=== PATIENT | male | born 1930 | race Hispanic/Latino ===

== ENCOUNTER 2016-11-12 13:28 | Outpatient (CLI) | payer MEDICARE, OTHER ==
[2016-11-12 13:42] LABS: Hematocrit 36.3 % (35.5-45.6); Hemoglobin 12.1 gm/dl (11.8-15.2); Mean Corpuscular HGB Conc 33 % (32-34); Mean Corpuscular Hemoglobin 29 pg (28-32); Mean Corpuscular Volume 88 fl (84-94); Platelet Count 246 K/mm3 (140-440); Red Blood Count 4.14 M/mm3 (3.65-5.03); Red Cell Distribution Width 14.3 % (13.2-15.2)
[2016-11-12 14:18] LABS: Alanine Aminotransferase 13 units/L (7-56); Albumin 4.3 g/dL (3.9-5); Albumin/Globulin Ratio 1.5 %; Alkaline Phosphatase 72 units/L (35-129); Bilirubin,Total 0.5 mg/dL (0.1-1.2); Blood Urea Nitrogen 18 mg/dL (9-20); Calcium 9.4 mg/dL (8.4-10.2); Carbon Dioxide 26 mmol/L (22-30); Chloride 97.8 mmol/L (98-107); Glucose 79 mg/dL (75-100); Potassium 3.4 mmol/L (3.6-5.0); Sodium 138 mmol/L (137-145); Total Protein 7.2 g/dL (6.3-8.2)
[2016-11-12 14:52] LABS: Anion Gap 18 mmol/L
== END 2016-11-12 13:29 | disposition home or self-care (01) ==
LOC: LAB 13:28
PROVIDERS: ATTEND Internal Medicine Nephrology
DX: I10 Essential (primary) hypertension (principal); R53.1 Weakness; N17.9 Acute kidney failure, unspecified; M54.5 Low back pain; K21.9 Gastro-esophageal reflux disease without esophagitis; E78.5 Hyperlipidemia, unspecified
CPT/HCPCS: 36415; 80053; 84443; 85027

== ENCOUNTER 2017-05-02 08:02 | Outpatient (CLI) | payer MEDICARE, OTHER ==
[2017-05-02] MEDS ORDERED: XYLOCAINE TOPICAL 4% TP ONE (08:50)
== END 2017-05-02 08:03 | disposition home or self-care (01) ==
LOC: WOUND 08:02
PROVIDERS: ATTEND Podiatrist
DX: L97.513 Non-pressure chronic ulcer of other part of right foot with necrosis of muscle (principal); I25.10 Atherosclerotic heart disease of native coronary artery without angina pectoris; I42.9 Cardiomyopathy, unspecified; I11.0 Hypertensive heart disease with heart failure; I50.9 Heart failure, unspecified; I48.91 Unspecified atrial fibrillation; E78.5 Hyperlipidemia, unspecified; G62.9 Polyneuropathy, unspecified; Z95.0 Presence of cardiac pacemaker; Z98.62 Peripheral vascular angioplasty status
CPT/HCPCS: 11043; G0463

== ENCOUNTER 2017-05-07 11:06 | Outpatient (CLI) | payer MEDICARE, OTHER ==
--- NOTE | 2017-05-07 12:02 | XRay Report ---
Right foot: Ulcer. Routine views of the right foot are compared to prior examination of October 11, 2016. 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 There is bandaging over the distal third digit with a small amount gas identified possibly within the soft tissues but this is not seen well enough and lateral view for confirmation. No destruction of underlying bone identified. There are destructive changes involving the MP joint as well as the tarsal metatarsal joint of the first digit which is stable compared to prior exam. There is a varus deformity of the fifth digit. No other significant findings. Impressions: 1. Third toe soft tissue changes/infection that is consistent with the patient's ulcer history. No osteomyelitis identified. 2. 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
== END 2017-05-07 11:07 | disposition home or self-care (01) ==
LOC: XRAY 11:06
PROVIDERS: ATTEND Podiatrist
DX: L97.511 Non-pressure chronic ulcer of other part of right foot limited to breakdown of skin (principal); M19.071 Primary osteoarthritis, right ankle and foot; I11.0 Hypertensive heart disease with heart failure; I50.9 Heart failure, unspecified; E78.00 Pure hypercholesterolemia, unspecified; I48.91 Unspecified atrial fibrillation; Z87.891 Personal history of nicotine dependence; Z89.421 Acquired absence of other right toe(s)

== ENCOUNTER 2017-05-09 10:30 | Outpatient (CLI) | payer MEDICARE, OTHER ==
[2017-05-09] MEDS ORDERED: XYLOCAINE TOPICAL 4% TP ONE ×2 (10:40→10:54)
== END 2017-05-09 10:31 | disposition home or self-care (01) ==
LOC: WOUND 10:30
PROVIDERS: ATTEND Podiatrist
DX: L97.513 Non-pressure chronic ulcer of other part of right foot with necrosis of muscle (principal); I25.10 Atherosclerotic heart disease of native coronary artery without angina pectoris; I42.9 Cardiomyopathy, unspecified; I11.0 Hypertensive heart disease with heart failure; I50.9 Heart failure, unspecified; I48.91 Unspecified atrial fibrillation; E78.5 Hyperlipidemia, unspecified; G62.9 Polyneuropathy, unspecified; Z95.0 Presence of cardiac pacemaker; Z98.61 Coronary angioplasty status; Z89.421 Acquired absence of other right toe(s)
CPT/HCPCS: 88302; 88304; 88305; 88311

== ENCOUNTER 2017-05-16 09:48 | Outpatient (CLI) | payer MEDICARE, OTHER ==
[2017-05-16] MEDS ORDERED: XYLOCAINE TOPICAL 4% TP ONE ×2 (10:05→10:18)
== END 2017-05-16 09:49 | disposition home or self-care (01) ==
LOC: WOUND 09:48
PROVIDERS: ATTEND Podiatrist
DX: L97.513 Non-pressure chronic ulcer of other part of right foot with necrosis of muscle (principal); I25.10 Atherosclerotic heart disease of native coronary artery without angina pectoris; I42.9 Cardiomyopathy, unspecified; I11.0 Hypertensive heart disease with heart failure; I50.9 Heart failure, unspecified; I48.91 Unspecified atrial fibrillation; E78.5 Hyperlipidemia, unspecified; M86.171 Other acute osteomyelitis, right ankle and foot; G62.9 Polyneuropathy, unspecified; Z95.0 Presence of cardiac pacemaker; Z98.62 Peripheral vascular angioplasty status

== ENCOUNTER 2017-05-23 10:31 | Outpatient (CLI) | payer MEDICARE, OTHER ==
[2017-05-23] MEDS ORDERED: XYLOCAINE TOPICAL 4% TP ONE ×2 (10:47→11:32)
== END 2017-05-23 10:32 | disposition home or self-care (01) ==
LOC: WOUND 10:31
PROVIDERS: ATTEND Podiatrist
DX: L97.513 Non-pressure chronic ulcer of other part of right foot with necrosis of muscle (principal); M86.171 Other acute osteomyelitis, right ankle and foot; I48.91 Unspecified atrial fibrillation; E78.5 Hyperlipidemia, unspecified; G62.9 Polyneuropathy, unspecified; I25.10 Atherosclerotic heart disease of native coronary artery without angina pectoris; I42.9 Cardiomyopathy, unspecified; I11.0 Hypertensive heart disease with heart failure; I50.9 Heart failure, unspecified; Z98.62 Peripheral vascular angioplasty status; Z95.0 Presence of cardiac pacemaker; Z89.421 Acquired absence of other right toe(s)

== ENCOUNTER 2017-05-30 10:28 | Outpatient (CLI) | payer MEDICARE, OTHER ==
[2017-05-30] MEDS ORDERED: XYLOCAINE TOPICAL 4% TP ONE (11:15)
== END 2017-05-30 10:29 | disposition home or self-care (01) ==
LOC: WOUND 10:28
PROVIDERS: ATTEND Podiatrist
DX: L97.513 Non-pressure chronic ulcer of other part of right foot with necrosis of muscle (principal); L97.512 Non-pressure chronic ulcer of other part of right foot with fat layer exposed; I11.0 Hypertensive heart disease with heart failure; I50.9 Heart failure, unspecified; M86.171 Other acute osteomyelitis, right ankle and foot; I48.91 Unspecified atrial fibrillation; E78.5 Hyperlipidemia, unspecified; G62.9 Polyneuropathy, unspecified; I25.10 Atherosclerotic heart disease of native coronary artery without angina pectoris; I42.9 Cardiomyopathy, unspecified; Z95.0 Presence of cardiac pacemaker; Z98.62 Peripheral vascular angioplasty status; Z89.421 Acquired absence of other right toe(s)

== ENCOUNTER 2017-06-06 10:24 | Outpatient (CLI) | payer MEDICARE, OTHER ==
[2017-06-06] MEDS ORDERED: XYLOCAINE TOPICAL 4% TP ONE ×2 (10:30→10:49)
== END 2017-06-06 10:25 | disposition home or self-care (01) ==
LOC: WOUND 10:24
PROVIDERS: ATTEND Podiatrist
DX: L97.512 Non-pressure chronic ulcer of other part of right foot with fat layer exposed (principal); M86.171 Other acute osteomyelitis, right ankle and foot; I25.10 Atherosclerotic heart disease of native coronary artery without angina pectoris; I42.9 Cardiomyopathy, unspecified; I11.0 Hypertensive heart disease with heart failure; I50.9 Heart failure, unspecified; G62.9 Polyneuropathy, unspecified; Z95.0 Presence of cardiac pacemaker; Z98.62 Peripheral vascular angioplasty status

== ENCOUNTER 2017-06-13 10:45 | Outpatient (CLI) | payer MEDICARE, OTHER | END 2017-06-13 10:46 | disposition home or self-care (01) | LOC: WOUND 10:45 | PROVIDERS: ATTEND Podiatrist | DX: L97.512 Non-pressure chronic ulcer of other part of right foot with fat layer exposed (principal); I10 Essential (primary) hypertension; I48.91 Unspecified atrial fibrillation; G62.9 Polyneuropathy, unspecified; E78.5 Hyperlipidemia, unspecified; M86.171 Other acute osteomyelitis, right ankle and foot; Z95.0 Presence of cardiac pacemaker; Z98.61 Coronary angioplasty status | CPT/HCPCS: 99212; G0463 ==

== ENCOUNTER 2018-05-07 13:16 | Emergency (ER) | payer MEDICARE, OTHER ==
[2018-05-07 13:37] VITALS: BP 157/57
[2018-05-07 14:13] LABS: Basophils % (Auto) 0.5 % (0.0-1.8); Eosinophils # (Auto) 0.2 K/mm3 (0.0-0.4); Eosinophils % (Auto) 4.9 % (0.0-4.3); Hematocrit 33.7 % (35.5-45.6); Hemoglobin 11.3 gm/dl (11.8-15.2); Lymphocytes % (Auto) 23.7 % (13.4-35.0); Mean Corpuscular HGB Conc 34 % (32-34); Mean Corpuscular Hemoglobin 29 pg (28-32); Mean Corpuscular Volume 87 fl (84-94); Monocytes # (Auto) 0.3 K/mm3 (0.0-0.8); Monocytes % (Auto) 7.5 % (0.0-7.3); Platelet Count 217 K/mm3 (140-440); Red Blood Count 3.85 M/mm3 (3.65-5.03)
[2018-05-07 14:28] LABS: INR 1.11 (0.87-1.13)
[2018-05-07 14:29] LABS: Partial Thromboplastin Time 32.8 Sec. (24.2-36.6)
[2018-05-07 14:36] LABS: Alanine Aminotransferase 11 units/L (7-56); Albumin 3.5 g/dL (3.9-5); BUN/Creatinine Ratio 14; Blood Urea Nitrogen 10 mg/dL (9-20); Calcium 8.8 mg/dL (8.4-10.2); Hemolysis Index 3
--- NOTE | 2018-05-07 17:24 | Emergency Department Report ---
ED Extremity Problem HPI - General Chief complaint: Extremity Injury, Lower Stated complaint: TOE INFECTION Time Seen by Provider: 05/07/18 16:55 Source: patient, family Mode of arrival: Ambulatory Limitations: No Limitations - History of Present Illness Initial comments: Patient is a 87-year-old male who is here because of swelling to the right lower extremity. Patient also on the fourth toe of his wasby family to 3 days ago. Patient has some increased swelling to the right lower extremity. Patient states the pain is only a 2 out of 10 in severity. Patient denies any chest pain shortness of breath fevers or chills at this time. Patient denies any trauma. - Related Data Home Medications Medication Instructions Recorded Confirmed Last Taken Atorvastatin (Nf) [Lipitor] 10 mg PO QHS 02/28/15 10/11/16 10/10/16 Carvedilol 25 mg PO BID 02/28/15 10/11/16 10/10/16 Diltiazem [Cardizem] 90 mg PO BID 02/28/15 10/11/16 10/11/16 Dutasteride [Avodart] 0.5 mg PO DAILY 02/28/15 10/11/16 10/10/16 Gabapentin 100 mg PO HS 02/28/15 10/11/16 10/10/16 Multivitamin [Multi-Vitamin Daily] 1 each PO DAILY 02/28/15 10/11/16 10/10/16 Omeprazole 20 mg PO BID 02/28/15 10/11/16 10/11/16 Vit B12/Folic Acid/B6/Aa No.15 1 each PO DAILY 02/28/15 10/11/16 10/10/16 [Glycotrol Capsule] Tamsulosin [Flomax] 0.4 mg PO BID 09/28/15 10/11/16 10/10/16 Cyproheptadine [Periactin] 4 mg PO TID 11/16/15 10/11/16 10/10/16 Gemfibrozil [Lopid] 600 mg PO BID 11/17/15 10/11/16 10/10/16 Aspirin [Adult Low Dose Aspirin EC] 81 mg PO DAILY 10/10/16 10/11/16 10/08/16 B2/Vits A,C,E/Lut/Zeaxanth/Min 1 tab PO BID 10/10/16 10/11/16 10/10/16 [Icaps Tablet] Triamter/Hctz 37.5-25 mg 1 tab PO QDAY 10/10/16 10/11/16 10/10/16 [Maxzide-25] Previous Rx's Medication Instructions Recorded Last Taken Type Amoxicillin/K Clav Tab [Augmentin 1 tab PO Q12HR #14 tab 10/11/16 Unknown Rx 875 mg] oxyCODONE /ACETAMINOPHEN [Percocet 1 tab PO Q4HR PRN #30 tab 10/11/16 Unknown Rx 5/325] Clindamycin [Clindamycin CAP] 300 mg PO Q8H 7 Days cap 05/07/18 Unknown Rx traMADol [Ultram] 50 mg PO Q6HR PRN #10 tablet 05/07/18 Unknown Rx Allergies Allergy/AdvReac Type Severity Reaction Status Date / Time No Known Allergies Allergy Verified 05/07/18 13:31 ED Review of Systems ROS: Stated complaint: TOE INFECTION Other details as noted in HPI Comment: All other systems reviewed and negative ED Past Medical Hx - Past Medical History Hx Hypertension: Yes Hx Heart Attack/AMI: No Hx Congestive Heart Failure: Yes Hx Diabetes: No - Surgical History Hx Coronary Stent: Yes Hx Pacemaker: Yes Hx Internal Defibrillator: Yes - Social History Smoking Status: Never Smoker Substance Use Type: None - Medications Home Medications: Home Medications Medication Instructions Recorded Confirmed Last Taken Type Atorvastatin (Nf) [Lipitor] 10 mg PO QHS 02/28/15 10/11/16 10/10/16 History Carvedilol 25 mg PO BID 02/28/15 10/11/16 10/10/16 History Diltiazem [Cardizem] 90 mg PO BID 02/28/15 10/11/16 10/11/16 History Dutasteride [Avodart] 0.5 mg PO DAILY 02/28/15 10/11/16 10/10/16 History Gabapentin 100 mg PO HS 02/28/15 10/11/16 10/10/16 History Multivitamin [Multi-Vitamin Daily] 1 each PO DAILY 02/28/15 10/11/16 10/10/16 History Omeprazole 20 mg PO BID 02/28/15 10/11/16 10/11/16 History Vit B12/Folic Acid/B6/Aa No.15 1 each PO DAILY 02/28/15 10/11/16 10/10/16 History [Glycotrol Capsule] Tamsulosin [Flomax] 0.4 mg PO BID 09/28/15 10/11/16 10/10/16 History Cyproheptadine [Periactin] 4 mg PO TID 11/16/15 10/11/16 10/10/16 History Gemfibrozil [Lopid] 600 mg PO BID 11/17/15 10/11/16 10/10/16 History Aspirin [Adult Low Dose Aspirin EC] 81 mg PO DAILY 10/10/16 10/11/16 10/08/16 History B2/Vits A,C,E/Lut/Zeaxanth/Min 1 tab PO BID 10/10/16 10/11/16 10/10/16 History [Icaps Tablet] Triamter/Hctz 37.5-25 mg 1 tab PO QDAY 10/10/16 10/11/16 10/10/16 History [Maxzide-25] Amoxicillin/K Clav Tab [Augmentin 1 tab PO Q12HR #14 tab 10/11/16 Unknown Rx 875 mg] oxyCODONE /ACETAMINOPHEN [Percocet 1 tab PO Q4HR PRN #30 tab 10/11/16 Unknown Rx 5/325] Clindamycin [Clindamycin CAP] 300 mg PO Q8H 7 Days cap 05/07/18 Unknown Rx traMADol [Ultram] 50 mg PO Q6HR PRN #10 tablet 05/07/18 Unknown Rx ED Physical Exam - General Limitations: No Limitations General appearance: alert, in no apparent distress - Head Head exam: Present: atraumatic, normocephalic - Eye Eye exam: Present: normal appearance - ENT ENT exam: Present: mucous membranes moist - Neck Neck exam: Present: normal inspection - Respiratory Respiratory exam: Present: normal lung sounds bilaterally. Absent: respiratory distress - Cardiovascular Cardiovascular Exam: Present: regular rate, normal rhythm. Absent: systolic murmur, diastolic murmur, rubs, gallop - GI/Abdominal GI/Abdominal exam: Present: soft, normal bowel sounds - Rectal Rectal exam: Present: deferred - Extremities Exam Extremities exam: Present: normal inspection, other (patient has a erythematous dime-sized open ulcer on the plantar surface of the fourth toe on his right lower extremity. Patient also has erythema to this toe. Patient has edema with no erythema that is pitting in the right lower extremity from the foot to the upper calf.) - Back Exam Back exam: Present: normal inspection - Neurological Exam Neurological exam: Present: alert, oriented X3 - Psychiatric Psychiatric exam: Present: normal affect, normal mood - Skin Skin exam: Present: warm, dry, intact, normal color. Absent: rash ED Course Vital Signs 05/07/18 13:32 Temperature 97.7 F Pulse Rate 66 Respiratory 18 Rate Blood Pressure 157/57 O2 Sat by Pulse 98 Oximetry ED Medical Decision Making - Lab Data Result diagrams: 05/07/18 13:49 05/07/18 13:49 - Radiology Data Ultrasound right lower extremity shows no DVT. There are some prominent inguinal lymph nodes present. - Medical Decision Making Patient is exhibiting signs of a cellulitis to the fourth toe on his right lower extremity. There is some reactive edema to the right lower extremity as well. Patient be started on antibiotics and patient's family's Petros made an appointment to see wound care. Critical care attestation.: If time is entered above; I have spent that time in minutes in the direct care of this critically ill patient, excluding procedure time. ED Disposition Clinical Impression: Cellulitis, toe Qualifiers: Laterality: right Qualified Code(s): L03.031 - Cellulitis of right toe Edema Qualifiers: Edema type: localized Qualified Code(s): R60.0 - Localized edema Disposition: DC-01 TO HOME OR SELFCARE Is pt being admited?: No Does the pt Need Aspirin: No Condition: Stable Instructions: Cellulitis (ED) Additional Instructions: Please make sure you keep your appointment to see wound care Referrals: CHETAN MYERS MD [Primary Care Provider] - 3-5 Days
== END 2018-05-07 18:19 | disposition home or self-care (01) ==
LOC: ED 13:16
DX: L03.031 Cellulitis of right toe (principal); I11.0 Hypertensive heart disease with heart failure; I50.9 Heart failure, unspecified; Z95.0 Presence of cardiac pacemaker
CPT/HCPCS: 36415; 80053; 82550; 85025; 85610; 85730; 99284

== ENCOUNTER 2018-05-13 12:50 | Outpatient (CLI) | payer MEDICARE ==
[2018-05-13] MEDS ORDERED: XYLOCAINE TOPICAL 4% TP ONE ×2 (13:19→14:53)
== END 2018-05-13 12:51 | disposition home or self-care (01) ==
LOC: WOUND 12:50
PROVIDERS: ATTEND Surgery
DX: S91.104D Unspecified open wound of right lesser toe(s) without damage to nail, subsequent encounter (principal); L89.612 Pressure ulcer of right heel, stage 2; I25.10 Atherosclerotic heart disease of native coronary artery without angina pectoris; I10 Essential (primary) hypertension; I48.91 Unspecified atrial fibrillation; E78.5 Hyperlipidemia, unspecified; G62.9 Polyneuropathy, unspecified; Z95.0 Presence of cardiac pacemaker; Z89.421 Acquired absence of other right toe(s); X58.XXXD Exposure to other specified factors, subsequent encounter
CPT/HCPCS: 11042; G0463

== ENCOUNTER 2018-05-20 12:57 | Outpatient (CLI) | payer MEDICARE ==
[2018-05-20] MEDS ORDERED: XYLOCAINE TOPICAL 2% 30ML TP ONE (14:00)
== END 2018-05-20 12:58 | disposition home or self-care (01) ==
LOC: WOUND 12:57
PROVIDERS: ATTEND Surgery
DX: S91.104D Unspecified open wound of right lesser toe(s) without damage to nail, subsequent encounter (principal); L89.612 Pressure ulcer of right heel, stage 2; I25.10 Atherosclerotic heart disease of native coronary artery without angina pectoris; I10 Essential (primary) hypertension; I48.91 Unspecified atrial fibrillation; E78.5 Hyperlipidemia, unspecified; G62.9 Polyneuropathy, unspecified; Z95.0 Presence of cardiac pacemaker; Z89.421 Acquired absence of other right toe(s); X58.XXXD Exposure to other specified factors, subsequent encounter

== ENCOUNTER 2018-05-27 10:48 | Outpatient (CLI) | payer MEDICARE ==
[2018-05-27] MEDS ORDERED: XYLOCAINE TOPICAL 2% 5ML ONE (10:54)
[2018-05-27] MEDS ORDERED: XYLOCAINE TOPICAL 2% 5ML TP ONE (11:01)
[2018-05-27] MEDS ORDERED: SILVER NITRATE TP ONE (11:20)
[2018-05-29] MEDS ORDERED: SILVER NITRATE TP ONE (16:52)
== END 2018-05-27 10:49 | disposition home or self-care (01) ==
LOC: WOUND 10:48
PROVIDERS: ATTEND Surgery
DX: S91.104D Unspecified open wound of right lesser toe(s) without damage to nail, subsequent encounter (principal); L89.612 Pressure ulcer of right heel, stage 2; I25.10 Atherosclerotic heart disease of native coronary artery without angina pectoris; I48.91 Unspecified atrial fibrillation; E78.5 Hyperlipidemia, unspecified; G62.9 Polyneuropathy, unspecified; Z95.0 Presence of cardiac pacemaker; Z89.421 Acquired absence of other right toe(s); X58.XXXD Exposure to other specified factors, subsequent encounter
CPT/HCPCS: 97597

== ENCOUNTER 2018-06-03 10:47 | Outpatient (CLI) | payer MEDICARE, OTHER ==
[2018-06-03] MEDS ORDERED: XYLOCAINE TOPICAL 2% 5ML ONE (11:27)
[2018-06-03] MEDS ORDERED: XYLOCAINE TOPICAL 2% 5ML TP ONE (15:04)
== END 2018-06-03 10:48 | disposition home or self-care (01) ==
LOC: WOUND 10:47
PROVIDERS: ATTEND Surgery
DX: S91.104D Unspecified open wound of right lesser toe(s) without damage to nail, subsequent encounter (principal); L89.612 Pressure ulcer of right heel, stage 2; I25.10 Atherosclerotic heart disease of native coronary artery without angina pectoris; I10 Essential (primary) hypertension; I48.91 Unspecified atrial fibrillation; E78.5 Hyperlipidemia, unspecified; G62.9 Polyneuropathy, unspecified; Z95.0 Presence of cardiac pacemaker; Z89.421 Acquired absence of other right toe(s); X58.XXXD Exposure to other specified factors, subsequent encounter

== ENCOUNTER 2018-12-24 13:13 | Emergency (ER) | payer MEDICARE, OTHER ==
--- NOTE | 2018-12-24 14:01 | Emergency Department Report ---
Addendum entered and electronically signed by AUDREY ALFARO NP 12/24/18 14:49: Blank Doc - Documentation Documentation: Correctoin: Left side leg affected, not right. Original Note: Blank Doc - Documentation Documentation: This is a 88-year-old male that presents with right leg/foot pain, swelling, and redness. Denies any fever. This initial assessment diagnostic orders/clinical plan/treatment(s) is/are subject to change based on patient's health status, clinical progression and re- assessment by fellow clinical providers in the ED. Further treatment and workup at subsequent clinical providers discretion. Patient/guardians urged not to elope from ED s their condition may be serious if not clinically assessed and managed. Initial orders include: 1-Patient sent to [facility] for further evaluation and treatment 2- labs 3- Doppler US
[2018-12-24 16:01] LABS: Basophils % (Auto) 0.4 % (0.0-1.8); Eosinophils # (Auto) 0.1 K/mm3 (0.0-0.4); Eosinophils % (Auto) 2.7 % (0.0-4.3); Hematocrit 33.5 % (35.5-45.6); Hemoglobin 11.5 gm/dl (11.8-15.2); Lymphocytes # (Auto) 0.8 K/mm3 (1.2-5.4); Lymphocytes % (Auto) 14.5 % (13.4-35.0); Mean Corpuscular HGB Conc 34 % (32-34); Mean Corpuscular Volume 86 fl (84-94); Monocytes # (Auto) 0.4 K/mm3 (0.0-0.8); Monocytes % (Auto) 8.4 % (0.0-7.3); Platelet Count 239 K/mm3 (140-440); Red Cell Distribution Width 13.9 % (13.2-15.2)
[2018-12-24 16:15] LABS: BUN/Creatinine Ratio 13; Blood Urea Nitrogen 10 mg/dL (9-20); Hemolysis Index 53
[2018-12-24 16:33] LABS: Alanine Aminotransferase 13 units/L (7-56); Albumin 3.7 g/dL (3.9-5)
[2018-12-24] MEDS ORDERED: NACL 0.9% IR ONE (16:34)
[2018-12-24 16:36] LABS: Bilirubin,Direct < 0.2 mg/dL (0-0.2)
[2018-12-24] MEDS ORDERED: NACL 0.9% 500 ML IR ONE (16:38)
[2018-12-24] MEDS ORDERED: ceFAZolin 2 GM in NACL 0.9% 100 ML IV SCH (17:00)
--- NOTE | 2018-12-24 17:52 | Emergency Department Report ---
Abscess Boil HPI - HPI Chief Complaint: Wound/Laceration Stated Complaint: INFECTION LEFT BOTTOM FOOT Time Seen by Provider: 12/24/18 13:58 Duration: 5 Days Location: Lower Extremity Severity: Mild History: Yes Pain, Yes Purulent Drainage, Yes Previous History, No Fever, No Numbness, No Foreign Body, No Insect Bite HPI: Patient is a very pleasant 88-year-old male who is brought to the ER today by his daughter. The daughter reports that the patient never takes his shoes off other than to sleep. And she is concerned that his foot issues are related to issues. Patient is 88 he is hard of hearing but he is ambulatory and conversant. He is alert and oriented 4. He has large bulky 10 issues on without socks. Assessment in triage was suspicious for DVT so an ultrasound was done. However, the patient has no problem with his leg the problem is with the bottom of his foot. He has a large callus that has started to peel off with surrounding erythema and purulent drainage per the family. Patient has a past medical history of the same including a past medical history of osteomyelitis just in the opposite foot. Home Medications: Home Medications Medication Instructions Recorded Confirmed Last Taken RX: Atorvastatin (Nf) [Lipitor] 10 mg PO QHS 02/28/15 10/11/16 10/10/16 RX: Carvedilol 25 mg PO BID 02/28/15 10/11/16 10/10/16 RX: Dutasteride [Avodart] 0.5 mg PO DAILY 02/28/15 10/11/16 10/10/16 RX: Gabapentin 100 mg PO HS 02/28/15 10/11/16 10/10/16 RX: Multivitamin [Multi-Vitamin 1 each PO DAILY 02/28/15 10/11/16 10/10/16 Daily] RX: Omeprazole 20 mg PO BID 02/28/15 10/11/16 10/11/16 RX: Vit B12/Folic Acid/B6/Aa No.15 1 each PO DAILY 02/28/15 10/11/16 10/10/16 [Glycotrol Capsule] RX: dilTIAZem [Cardizem] 90 mg PO BID 02/28/15 10/11/16 10/11/16 RX: Tamsulosin [Flomax] 0.4 mg PO BID 09/28/15 10/11/16 10/10/16 RX: Cyproheptadine [Periactin] 4 mg PO TID 11/16/15 10/11/16 10/10/16 Gemfibrozil [Lopid] 600 mg PO BID 11/17/15 10/11/16 10/10/16 Aspirin [Adult Low Dose Aspirin EC] 81 mg PO DAILY 10/10/16 10/11/16 10/08/16 B2/Vits A,C,E/Lut/Zeaxanth/Min 1 tab PO BID 10/10/16 10/11/16 10/10/16 [Icaps Tablet] Triamter/Hctz 37.5-25 mg 1 tab PO QDAY 10/10/16 10/11/16 10/10/16 [Maxzide-25] Previous Rx's Medication Instructions Recorded Last Taken Type Cephalexin [Keflex] 500 mg PO BID #20 capsule 12/24/18 Unknown Rx Silver Sulfadiazine [Ssd] 400 gm TP BID #1 cream..g. 12/24/18 Unknown Rx Allergies/Adverse Reactions: Allergies Allergy/AdvReac Type Severity Reaction Status Date / Time No Known Allergies Allergy Verified 12/24/18 13:15 ED Review of Systems ROS: Stated complaint: INFECTION LEFT BOTTOM FOOT Other details as noted in HPI Comment: All other systems reviewed and negative Constitutional: denies: chills, fever Eyes: denies: eye pain ENT: denies: ear pain Respiratory: denies: cough Cardiovascular: denies: chest pain Endocrine: denies: excessive sweating Gastrointestinal: denies: nausea Genitourinary: denies: as per HPI, urgency Musculoskeletal: as per HPI. 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 - Family History Family history: no significant - Social History Smoking Status: Never Smoker Substance Use Type: None - Medications Home Medications: Home Medications Medication Instructions Recorded Confirmed Last Taken Type RX: Atorvastatin (Nf) [Lipitor] 10 mg PO QHS 02/28/15 10/11/16 10/10/16 History RX: Carvedilol 25 mg PO BID 02/28/15 10/11/16 10/10/16 History RX: Dutasteride [Avodart] 0.5 mg PO DAILY 02/28/15 10/11/16 10/10/16 History RX: Gabapentin 100 mg PO HS 02/28/15 10/11/16 10/10/16 History RX: Multivitamin [Multi-Vitamin 1 each PO DAILY 02/28/15 10/11/16 10/10/16 History Daily] RX: Omeprazole 20 mg PO BID 02/28/15 10/11/16 10/11/16 History RX: Vit B12/Folic Acid/B6/Aa No.15 1 each PO DAILY 02/28/15 10/11/16 10/10/16 History [Glycotrol Capsule] RX: dilTIAZem [Cardizem] 90 mg PO BID 02/28/15 10/11/16 10/11/16 History RX: Tamsulosin [Flomax] 0.4 mg PO BID 09/28/15 10/11/16 10/10/16 History RX: Cyproheptadine [Periactin] 4 mg PO TID 11/16/15 10/11/16 10/10/16 History Gemfibrozil [Lopid] 600 mg PO BID 11/17/15 10/11/16 10/10/16 History Aspirin [Adult Low Dose Aspirin EC] 81 mg PO DAILY 10/10/16 10/11/16 10/08/16 History B2/Vits A,C,E/Lut/Zeaxanth/Min 1 tab PO BID 10/10/16 10/11/16 10/10/16 History [Icaps Tablet] Triamter/Hctz 37.5-25 mg 1 tab PO QDAY 10/10/16 10/11/16 10/10/16 History [Maxzide-25] Cephalexin [Keflex] 500 mg PO BID #20 capsule 12/24/18 Unknown Rx Silver Sulfadiazine [Ssd] 400 gm TP BID #1 cream..g. 12/24/18 Unknown Rx ED Abscess Boil Physical Exam - Exam General: Vital signs noted. No distress. Alert and acting appropriately. Exam: Yes Tenderness, Yes Surrounding Cellulites/Erythema, Yes Normal Neurologic Exam, Yes Normal Circulation, No Fluctuance, No Lymphangitis, No Crepitation, No Heart Murmur Exam: Patient is alert and oriented 3. He is ambulatory. There is no focal neuro deficit. S1 and S2. No murmur or bruit or rub. There is no edema or JVD. Lungs are clear to auscultation. Abdomen is obese soft nontender. No ascites. Bilateral lower extremities without swelling. Left foot noted to have a large callus on the ball of the great toe. The calluses started to peel off. The underlying skin is erythematous. The area is somewhat macerated from the tennis shoes. The family is reporting purulent drainage. Patient has +2 DP and PT pulses bilaterally. Nails normal. Patient has sensation and full range of motion of the toes and foot. Patient is ambulatory. ED Course Vital Signs 12/24/18 13:58 Temperature 97.8 F Pulse Rate 78 Respiratory 18 Rate Blood Pressure 183/71 O2 Sat by Pulse 98 Oximetry - Reevaluation(s) Reevaluation #1: 12/24/18 17:53 home meds asa losartan adadart omeprazole dimitris coreg gemfibrozil statin flomax eye gtt megetrol D3 Wound has been cleaned with half saline and half Betadine solution. Family has been taught wound care. Wound care will consist of SSD applied liberally to the foot and then wrapped in gauze. This was done in the emergency room and is to be done twice a day. In addition patient will be on antibiotics. I've given him a dose of IV clindamycin here in the emergency room while waiting for an x-ray to evaluate for air suggestive of an osteomyelitis or deeper infection. This x-ray came back without suspicion for osteomyelitis. The patient will go home on Keflex twice a day. Critical care attestation.: If time is entered above; I have spent that time in minutes in the direct care o f this critically ill patient, excluding procedure time. ED Medical Decision Making - Lab Data Result diagrams: 12/24/18 15:40 12/24/18 15:40 - Radiology Data Radiology results: report reviewed, image reviewed - Medical Decision Making Labs 12/24/18 12/24/18 12/24/18 15:40 15:40 16:00 WBC 5.3 RBC 3.90 Hgb 11.5 L Hct 33.5 L MCV 86 MCH 30 MCHC 34 RDW 13.9 Plt Count 239 Lymph % (Auto) 14.5 Sharkey % (Auto) 8.4 H Eos % (Auto) 2.7 Baso % (Auto) 0.4 Lymph # 0.8 L Sharkey # 0.4 Eos # 0.1 Baso # 0.0 Seg Neutrophils % 74.0 H Seg Neutrophils # 3.9 Sodium 142 Potassium 4.2 Chloride 101.3 Carbon Dioxide 27 Anion Gap 18 BUN 10 Creatinine 0.8 Estimated GFR > 60 BUN/Creatinine Ratio 13 Glucose 86 Calcium 9.0 Total Bilirubin 0.40 Direct Bilirubin < 0.2 Indirect Bilirubin 0.2 AST 22 ALT 13 Alkaline Phosphatase 81 Total Protein 6.8 Albumin 3.7 L Albumin/Globulin Ratio 1.2 see HPI see course wound care provided and instructed antibiotics IV here and PO at home follow up instructions provided. on dc pt is ambulatory, VSS and afebrile. - Differential Diagnosis ro cellulitis/ osteomyelitis ED Disposition Clinical Impression: Neuropathy, Wound of left foot, Cellulitis, Frail elderly Disposition: DC-01 TO HOME OR SELFCARE Is pt being admited?: No Does the pt Need Aspirin: No Condition: Stable Instructions: Cellulitis (ED) Additional Instructions: SOAK FOOT IN EPSOM SALTS TWICE PER DAY FOR 30 MIN THEN COVER IN SSD AND WRAP IN GUAZE MEDS ORDERED MOTRIN OR TYLENOL FOR PAIN FOLLOW UP WITH PCP NEXT WEEK TO BE SURE THIS IS HEALING WELL DIET TOLERATED ACTIVITY TOLERATED Prescriptions: Cephalexin [Keflex] 500 mg PO BID #20 capsule Silver Sulfadiazine [Ssd] 400 gm TP BID #1 cream..g. Referrals: ZONIA RAYMOND MD [Primary Care Provider] - 3-5 Days Time of Disposition: 17:56
--- NOTE | 2018-12-24 17:53 | XRay Report ---
FINAL REPORT EXAM: XR FOOT 2V LT HISTORY: foot pain TECHNIQUE: AP and lateral radiographs of the left foot. PRIORS: None. FINDINGS: No definite acute fracture is seen. No dislocation. Diffuse osteopenia noted. There is soft tissue swelling over the dorsum of the left foot. Degenerative changes of the 1st MTP j oint are seen. No bony erosion or periosteal reaction. Calcaneal spurs are seen. Small vessel calcifications are see n. IMPRESSION: 1. Soft tissue swelling of the left foot without acute osseous abnormality. 2. 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
[2018-12-24] MEDS ORDERED: THERMAZENE 50 GRAM TP STA (17:58)
[2018-12-24 18:20] VITALS: BP 204/72
--- NOTE | 2018-12-29 13:42 | Vascular Lab Report ---
FINAL REPORT EXAM: VL VENOUS DUPLEX LE RT HISTORY: left leg pain TECHNIQUE: Grayscale and color and spectral Doppler ultrasound imaging of the left lower extremity w as performed for the purposes of assessing for deep venous thrombosis. PRIORS: None. FINDINGS: No evidence of deep venous thrombosis is seen within the left common femoral through the posterior ti bial and peroneal veins.. Normal compression and color flow is seen throughout the venous system of t he left lower extremity. Normal augmentation was seen. Incidentally the right common femoral vein is patent. Subcutaneous edema is seen within the left ankle. IMPRESSION: Negative for left lower extremity deep venous thrombosis.
== END 2018-12-24 18:56 | disposition home or self-care (01) ==
LOC: ED 13:13
DX: S91.102A Unspecified open wound of left great toe without damage to nail, initial encounter (principal); L03.032 Cellulitis of left toe; G62.9 Polyneuropathy, unspecified; I11.0 Hypertensive heart disease with heart failure; Z95.0 Presence of cardiac pacemaker; Z89.421 Acquired absence of other right toe(s); X58.XXXA Exposure to other specified factors, initial encounter; Y93.89 Activity, other specified; Y92.89 Other specified places as the place of occurrence of the external cause; Y99.8 Other external cause status
CPT/HCPCS: 36415; 80048; 80076; 85025; 96365; J0690

== ENCOUNTER 2019-02-11 10:10 | Outpatient (CLI) | payer MEDICARE, OTHER ==
--- NOTE | 2019-02-11 13:44 | Ultrasound Report ---
ULTRASOUND RENAL BILATERAL HISTORY: Renal cyst. TECHNIQUE: transabdominal ultrasound with color Doppler interrogation. FINDINGS: The right kidney measures 9.5 x 5.1 x 5.5cm. Right renal cortex: 1.0cm. The left kidney measures 10.0 x 3.6 x 5.5cm. Left renal cortex: 1.0cm. Scans of the kidneys show normal renal contours. There is normal central calyceal clustering and good preservation of the cortical thickness. There is no evidence of mass or hydronephrosis. The views of the bladder and the region of the ureters appear normal. IMPRESSION: Unremarkable renal ultrasound. No renal cystic disease is detected on ultrasound.
== END 2019-02-11 10:11 | disposition home or self-care (01) ==
LOC: US 10:10
PROVIDERS: ATTEND Urology
DX: N28.1 Cyst of kidney, acquired (principal); K21.9 Gastro-esophageal reflux disease without esophagitis; I11.0 Hypertensive heart disease with heart failure; I50.9 Heart failure, unspecified; E78.00 Pure hypercholesterolemia, unspecified
CPT/HCPCS: 76770

== ENCOUNTER 2019-06-08 12:48 | Emergency (ER) | payer MEDICARE, OTHER ==
--- NOTE | 2019-06-08 13:24 | Event Note ---
ED Screening Note Date of service: 06/08/19 Time: 12:57 ED Screening Note: 88 y/o male comes in for left flank pain that radiates to the abd times 1 week. Hx/o CHF, pacemaker, BPH, This initial assessment/diagnostic orders/clinical plan/treatment(s) is/are subject to change based on patients health status, clinical progression and re- assessment by fellow clinical providers in the ED. Further treatment and workup at subsequent clinical providers discretion. Patient/guardian urged not to elope from the ED as their condition may be serious if not clinically assessed and managed. Initial orders include:
[2019-06-08 13:34] LABS: Bilirubin,Urine NEG (Negative); Blood,Urine NEG (Negative); Color,Urine Yellow (Yellow); Protein,Urine <15 mg/dL mg/dL (Negative); Urobilinogen,Urine < 2.0 mg/dL (<2.0)
[2019-06-08 13:40] LABS: Basophils # (Auto) 0.1 K/mm3 (0.0-0.1); Basophils % (Auto) 0.7 % (0.0-1.8); Eosinophils # (Auto) 0.2 K/mm3 (0.0-0.4); Eosinophils % (Auto) 1.6 % (0.0-4.3); Hematocrit 39.1 % (35.5-45.6); Hemoglobin 13.1 gm/dl (11.8-15.2); Lymphocytes # (Auto) 0.6 K/mm3 (1.2-5.4); Lymphocytes % (Auto) 5.9 % (13.4-35.0); Mean Corpuscular HGB Conc 34 % (32-34); Mean Corpuscular Volume 88 fl (84-94); Monocytes # (Auto) 0.5 K/mm3 (0.0-0.8); Platelet Count 231 K/mm3 (140-440); Red Blood Count 4.45 M/mm3 (3.65-5.03); Red Cell Distribution Width 14.5 % (13.2-15.2)
[2019-06-08 13:59] LABS: Alanine Aminotransferase 17 units/L (7-56); Albumin 4.2 g/dL (3.9-5); BUN/Creatinine Ratio 15; Blood Urea Nitrogen 12 mg/dL (9-20); Calcium 9.5 mg/dL (8.4-10.2); Hemolysis Index 4
--- NOTE | 2019-06-08 14:47 | Emergency Department Report ---
ED General Adult HPI - General Chief complaint: Abdominal Pain Stated complaint: BACK/SIDE PAIN Time Seen by Provider: 06/08/19 12:56 Source: patient Mode of arrival: Ambulatory Limitations: No Limitations - History of Present Illness Initial comments: The patient presents to the emergency department with a chief complaint of left flank pain for the last 2 weeks. Patient states that the left flank pain radiates into his left groin. The pain is worse with movement. Patient denies any issues with urination or bowel movements. -: Gradual Location: abdomen, left Radiation: other (groin) Severity scale (0 -10): 6 Quality: sharp Consistency: constant Improves with: none Worsens with: movement Associated Symptoms: denies other symptoms Treatments Prior to Arrival: none - Related Data Home Medications Medication Instructions Recorded Confirmed Last Taken Atorvastatin (Nf) [Lipitor] 10 mg PO QHS 02/28/15 10/11/16 10/10/16 Carvedilol 25 mg PO BID 02/28/15 10/11/16 10/10/16 Dutasteride [Avodart] 0.5 mg PO DAILY 02/28/15 10/11/16 10/10/16 Gabapentin 100 mg PO HS 02/28/15 10/11/16 10/10/16 Multivitamin [Multi-Vitamin Daily] 1 each PO DAILY 02/28/15 10/11/16 10/10/16 Omeprazole 20 mg PO BID 02/28/15 10/11/16 10/11/16 Vit B12/Folic Acid/B6/Aa No.15 1 each PO DAILY 02/28/15 10/11/16 10/10/16 [Glycotrol Capsule] dilTIAZem [Cardizem] 90 mg PO BID 02/28/15 10/11/16 10/11/16 Tamsulosin [Flomax] 0.4 mg PO BID 09/28/15 10/11/16 10/10/16 Cyproheptadine [Periactin] 4 mg PO TID 11/16/15 10/11/16 10/10/16 Gemfibrozil [Lopid] 600 mg PO BID 11/17/15 10/11/16 10/10/16 Aspirin [Adult Low Dose Aspirin EC] 81 mg PO DAILY 10/10/16 10/11/16 10/08/16 B2/Vits A,C,E/Lut/Zeaxanth/Min 1 tab PO BID 10/10/16 10/11/16 10/10/16 [Icaps Tablet] Triamter/Hctz 37.5-25 mg 1 tab PO QDAY 10/10/16 10/11/16 10/10/16 [Maxzide-25] Previous Rx's Medication Instructions Recorded Last Taken Type Cephalexin [Keflex] 500 mg PO BID #20 capsule 12/24/18 Unknown Rx Silver Sulfadiazine [Ssd] 400 gm TP BID #1 cream..g. 12/24/18 Unknown Rx Allergies Allergy/AdvReac Type Severity Reaction Status Date / Time No Known Allergies Allergy Verified 12/24/18 13:15 ED Review of Systems ROS: Stated complaint: BACK/SIDE PAIN Other details as noted in HPI Comment: All other systems reviewed and negative Constitutional: denies: chills, fever Eyes: denies: eye pain, eye discharge, vision change ENT: denies: ear pain, throat pain Respiratory: denies: cough, shortness of breath, wheezing Cardiovascular: denies: chest pain, palpitations Endocrine: no symptoms reported Gastrointestinal: denies: abdominal pain, nausea, diarrhea Genitourinary: denies: urgency, dysuria Musculoskeletal: back pain. 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 - Surgical History Past Surgical History?: Yes Hx Coronary Stent: Yes Hx Pacemaker: Yes Hx Internal Defibrillator: Yes Additional Surgical History: 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 - Social History Smoking Status: Never Smoker Substance Use Type: None - Medications Home Medications: Home Medications Medication Instructions Recorded Confirmed Last Taken Type Atorvastatin (Nf) [Lipitor] 10 mg PO QHS 02/28/15 10/11/16 10/10/16 History Carvedilol 25 mg PO BID 02/28/15 10/11/16 10/10/16 History Dutasteride [Avodart] 0.5 mg PO DAILY 02/28/15 10/11/16 10/10/16 History Gabapentin 100 mg PO HS 02/28/15 10/11/16 10/10/16 History Multivitamin [Multi-Vitamin Daily] 1 each PO DAILY 02/28/15 10/11/16 10/10/16 History Omeprazole 20 mg PO BID 02/28/15 10/11/16 10/11/16 History Vit B12/Folic Acid/B6/Aa No.15 1 each PO DAILY 02/28/15 10/11/16 10/10/16 History [Glycotrol Capsule] dilTIAZem [Cardizem] 90 mg PO BID 02/28/15 10/11/16 10/11/16 History Tamsulosin [Flomax] 0.4 mg PO BID 09/28/15 10/11/16 10/10/16 History Cyproheptadine [Periactin] 4 mg PO TID 11/16/15 10/11/16 10/10/16 History Gemfibrozil [Lopid] 600 mg PO BID 11/17/15 10/11/16 10/10/16 History Aspirin [Adult Low Dose Aspirin EC] 81 mg PO DAILY 10/10/16 10/11/16 10/08/16 History B2/Vits A,C,E/Lut/Zeaxanth/Min 1 tab PO BID 10/10/16 10/11/16 10/10/16 History [Icaps Tablet] Triamter/Hctz 37.5-25 mg 1 tab PO QDAY 10/10/16 10/11/16 10/10/16 History [Maxzide-25] Cephalexin [Keflex] 500 mg PO BID #20 capsule 12/24/18 Unknown Rx Silver Sulfadiazine [Ssd] 400 gm TP BID #1 cream..g. 12/24/18 Unknown Rx ED Physical Exam - General Limitations: No Limitations General appearance: alert, in no apparent distress - Head Head exam: Present: atraumatic, normocephalic - Eye Eye exam: Present: normal appearance, PERRL, EOMI - ENT ENT exam: Present: mucous membranes moist - Neck Neck exam: Present: normal inspection - Respiratory Respiratory exam: Present: normal lung sounds bilaterally. Absent: respiratory distress - Cardiovascular Cardiovascular Exam: Present: regular rate, normal rhythm. Absent: systolic murmur, diastolic murmur, rubs, gallop - GI/Abdominal GI/Abdominal exam: Present: soft, normal bowel sounds. Absent: distended, tenderness - Rectal Rectal exam: Present: deferred - Extremities Exam Extremities exam: Present: normal inspection - Back Exam Back exam: Present: other (TTP midline L spine; ttp sciatic outlet left side ) - Neurological Exam Neurological exam: Present: alert, oriented X3, CN II-XII intact. Absent: motor sensory deficit - Psychiatric Psychiatric exam: Present: normal affect, normal mood - Skin Skin exam: Present: warm, dry, intact, normal color. Absent: rash ED Course Vital Signs 06/08/19 12:56 Temperature 97.7 F Pulse Rate 88 Blood Pressure 186/81 O2 Sat by Pulse 97 Oximetry ED Medical Decision Making - Lab Data Result diagrams: 06/08/19 13:19 06/08/19 13:19 Lab Results 06/08/19 06/08/19 06/08/19 Range/Units 13:19 13:19 13:22 WBC 9.6 (4.5-11.0) K/mm3 RBC 4.45 (3.65-5.03) M/mm3 Hgb 13.1 (11.8-15.2) gm/dl Hct 39.1 (35.5-45.6) % MCV 88 (84-94) fl MCH 30 (28-32) pg MCHC 34 (32-34) % RDW 14.5 (13.2-15.2) % Plt Count 231 (140-440) K/mm3 Lymph % (Auto) 5.9 L (13.4-35.0) % [place] % (Auto) 5.0 (0.0-7.3) % Eos % (Auto) 1.6 (0.0-4.3) % Baso % (Auto) 0.7 (0.0-1.8) % Lymph # 0.6 L (1.2-5.4) K/mm3 [place] # 0.5 (0.0-0.8) K/mm3 Eos # 0.2 (0.0-0.4) K/mm3 Baso # 0.1 (0.0-0.1) K/mm3 Seg Neutrophils % 86.8 H (40.0-70.0) % Seg Neutrophils # 8.3 H (1.8-7.7) K/mm3 Sodium 141 (137-145) mmol/L Potassium 3.7 (3.6-5.0) mmol/L Chloride 101.2 (98-107) mmol/L Carbon Dioxide 28 (22-30) mmol/L Anion Gap 16 mmol/L BUN 12 (9-20) mg/dL Creatinine 0.8 (0.8-1.5) mg/dL Estimated GFR > 60 ml/min BUN/Creatinine Ratio 15 % Glucose 97 (75-100) mg/dL Calcium 9.5 (8.4-10.2) mg/dL Total Bilirubin 0.50 (0.1-1.2) mg/dL AST 19 (5-40) units/L ALT 17 (7-56) units/L Alkaline Phosphatase 89 (35-129) units/L Total Protein 7.5 (6.3-8.2) g/dL Albumin 4.2 (3.9-5) g/dL Albumin/Globulin Ratio 1.3 % Urine Color Yellow (Yellow) Urine Turbidity Hazy (Clear) Urine pH 6.0 (5.0-7.0) Ur Specific Del[place] 1.013 (1.003-1.030) Urine Protein <15 mg/dl (Negative) mg/dL Urine Glucose (UA) Neg (Negative) mg/dL Urine Ketones Neg (Negative) mg/dL Urine Blood Neg (Negative) Urine Nitrite Neg (Negative) Urine Bilirubin Neg (Negative) Urine Urobilinogen < 2.0 (<2.0) mg/dL Ur Leukocyte Esterase Neg (Negative) Urine WBC (Auto) 3.0 (0.0-6.0) /HPF Urine RBC (Auto) 1.0 (0.0-6.0) /HPF - Radiology Data Radiology results: report reviewed - Medical Decision Making CT of abdomen and pelvis report was reviewed by radiology because there was an issue having a crossover CT results of the L-spine and CT abdomen and pelvis with family Family states they will use Aleve and Tylenol at home for pain relief Critical care attestation.: If time is entered above; I have spent that time in minutes in the direct care of this critically ill patient, excluding procedure time. ED Disposition Clinical Impression: Sciatic nerve pain, Flank pain, acute Disposition: DC-01 TO HOME OR SELFCARE Is pt being admited?: No Does the pt Need Aspirin: No Condition: Stable Instructions: Flank Pain (ED), Sciatica (ED) Additional Instructions: return if worse Referrals: SHAVON ZHENG MD [Primary Care Provider] - 3-5 Days MICHAEL LANGSTON MD [Staff Physician] - 3-5 Days Time of Disposition: 17:41
--- NOTE | 2019-06-08 16:04 | Cat Scan Report ---
CT LUMBAR SPINE: 06/08/2019 INDICATION / CLINICAL INFORMATION: 88-year-old male with low back pain. COMPARISON: None available. FINDINGS: CT images of the lumbar spine were obtained. Images are evaluated in the axial, coronal, and sagitta l plane. There is a pronounced left convex scoliosis of the lumbar spine present, associated with prominent mu ltilevel degenerative disc and facet changes. There is no evidence of acute traumatic injury. The bones are diffusely osteopenic. LEVEL BY LEVEL ANALYSIS: L5-S1: Diffuse disc bulging and prominent bilateral facet degenerative changes. L4-5: Moderate diffuse disc bulging associated with right greater than left facet degenerative change s. There is encroachment upon the right lateral recess and neural foramen at this level. L3-4: There is a slight retrolisthesis associated with prominent facet degenerative changes and moder ate diffuse disc bulging. Severe central canal narrowing is present. There is also significant right- sided foraminal narrowing present at this level. L2-3: Moderate diffuse disc bulging is associated with moderate central canal narrowing. L1-2: Mild diffuse disc bulging. PARASPINAL STRUCTURES: Unremarkable. IMPRESSION: Multilevel degenerative disc and facet changes associated with scoliosis. This includes right lateralization at L4-5, right lateralization at L3-4 with associated severe centr al canal stenosis. All CT scans at this location are performed using dose reduction to ALARA by means of automated expos ure control. Signer Name: Shahid Smith MD Signed: 06/08/2019 4:00 PM Workstation Name: [id number]
[2019-06-08 17:48] VITALS: BP 161/77
== END 2019-06-08 17:48 | disposition home or self-care (01) ==
LOC: ED 12:48
DX: M54.30 Sciatica, unspecified side (principal); R10.9 Unspecified abdominal pain; I11.0 Hypertensive heart disease with heart failure; I50.9 Heart failure, unspecified; G62.9 Polyneuropathy, unspecified; Z95.5 Presence of coronary angioplasty implant and graft; Z95.0 Presence of cardiac pacemaker; Z95.810 Presence of automatic (implantable) cardiac defibrillator; Z98.890 Other specified postprocedural states; Z79.899 Other long term (current) drug therapy
CPT/HCPCS: 36415; 72131; 74176; 80053; 81001; 85025